=== PATIENT | female | born 1955 | race Caucasian/White ===

== ENCOUNTER → 2017-03-04 | Outpatient (CLI) | payer OTHER | LOC: FIMAGING 09:17 | PROVIDERS: ATTEND Internal Medicine | DX: Z12.31 Encounter for screening mammogram for malignant neoplasm of breast (principal); Z80.3 Family history of malignant neoplasm of breast | CPT/HCPCS: G0202 ==

== ENCOUNTER 2017-06-19 21:03 | Emergency (ER) | payer OTHER ==
[2017-06-19 21:10] VITALS: RESP 16
--- NOTE | 2017-06-19 21:38 | EDPHY ---
H & P Stated Complaint: Fell in bathtub, hit head, headache, -LOC Time Seen by Provider: 06/19/17 21:10 HPI/ROS: HPI CHIEF COMPLAINT: Slip and fall in bed thumb, head injury HISTORY OF PRESENT ILLNESS: This patient is 61-year-old female, she is otherwise healthy without any significant medical history does not take any daily medications except for hypertension medication, not on blood thinners, she slipped and fell in her bathtub she fell backwards with head strike. No LOC. No vomiting does complain of nausea. Complains of a posterior headache as well. Denies chest pain, shortness of breath, syncope. Denies extremity pain. She is noted to have a hematoma to the posterior occiput. She also complains of bilateral neck pain but no midline neck pain. Patient states that she slipped and fell in the wet bathtub. Her feet went out underneath her. Past Medical History: Hypertension Past Surgical History: No recent surgery Social History: Denies drugs alcohol tobacco. Family History: Noncontributory ROS REVIEW OF SYSTEMS: A comprehensive 10 point review of systems is otherwise negative aside from elements mentioned in the history of present illness. Exam Constitutional appears well nontoxic no acute distress, triage nursing summary reviewed, vital signs reviewed, awake/alert. Eyes normal conjunctivae and sclera, EOMI, PERRLA. HENT head/neck: Posterior occiput, shows a scalp hematoma, no laceration, no midline cervical spine pain or step-offs or crepitus, does complain of some mild paravertebral pain bilaterally. moist mucus membranes, no epistaxis, neck supple/ no meningismus, no raccoon eyes. Respiratory clear to auscultation bilaterally, normal breath sounds, no respiratory distress, no wheezing. Cardiovascular rate normal, regular rhythm, no murmur, no edema, distal pulses normal. Gastrointestinal soft, non-tender, no rebound, no guarding, normal bowel sounds, no distension, no pulsatile mass. Genitourinary no CVA tenderness. Musculoskeletal no midline vertebral tenderness, full range of motion, no calf swelling, no tenderness of extremities, no meningismus, good pulses, neurovascularly intact. Skin pink, warm, & dry, no rash, skin atraumatic. Neurologic awake, alert and oriented x 3, AAOx3, moves all 4 extremities equally, motor intact, sensory intact, CN II-XII intact, normal cerebellar, normal vision, normal speech. Psychiatric normal mood/affect. Heme/Lymph/Immune no lymphadenopathy. Differential Diagnosis: Includes but is not limited to in a particular order closed-head injury, concussion, intracranial bleed, skull fracture, epidural, subdural, traumatic subarachnoid, scalp hematoma, cervical spine injury Medical Decision Making: Plan for this patient CT head without contrast CT cervical spine without contrast for trauma, Tylenol 1 g for pain control. Re-evaluation: CT head without contrast CT cervical spine without contrast negative for acute traumatic injury. Source: Patient - Personal History Current Tetanus/Diphtheria Vaccine: Unsure Current Tetanus Diphtheria and Acellular Pertussis (TDAP): Unsure - Medical/Surgical History Hx Asthma: No Hx Chronic Respiratory Disease: No Hx Diabetes: No Hx Cardiac Disease: No Hx Renal Disease: No Hx Cirrhosis: No Hx Alcoholism: No Hx HIV/AIDS: No Hx Splenectomy or Spleen Trauma: No Other PMH: HTN, L total hip, concussion, hysterectomy, ortho sx. - Social History Smoking Status: Never smoked Constitutional: Initial Vital Signs Temperature (C) 36.5 C 06/19/17 21:06 Heart Rate 71 06/19/17 21:06 Respiratory Rate 16 06/19/17 21:06 Blood Pressure 154/87 H 06/19/17 21:06 O2 Sat (%) 95 06/19/17 21:06 O2 Delivery Mode Room Air Allergies/Adverse Reactions: Quinolones Allergy (Verified 06/19/17 21:10) Home Medications: Medication Instructions Recorded Chlorthalidone 06/19/17 Estrogens,Conjugated 06/19/17 Potassium Chloride 06/19/17 Progesterone 06/19/17 Testosterone 06/19/17 Medical Decision Making - Diagnostics Imaging Results: Imaging Impressions Cervical Spine CT 06/19/17 21:41 Impression: There is no acute intracranial abnormality identified on this unenhanced CT evaluation. UNENHANCED CT SCAN OF THE CERVICAL SPINE Technique: A multidetector unenhanced helical CT scan was obtained from the clivus caudally through the upper thoracic spine, with images reformatted at 1.25 and 0.625 mm increments, and are reviewed in soft tissue, bone, and lung windows. Parasagittal and paracoronal reconstructed images are reviewed on the workstation. The DFOV is 16.0 cm. A dose reduction protocol was used. Findings: The cervical vertebral body heights are maintained. There is 1 mm of C4 anterolisthesis above C5, and 3 mm of C5 posterolisthesis of C6 where there are ventral traction osteophytes from C4 to C6 and dorsal traction osteophytes at C5-C6, where there is severe degenerative disk space narrowing and endplate sclerosis. There is no acute fracture, or facet malalignment, although there is facet hypertrophy and asymmetric right-sided uncovertebral degenerative spondylosis at C5-C6 resulting in severe right neural foraminal stenosis at this level. There is also some mild bilateral facet hypertrophy at C6-C7. The interspinous distances are normal. The craniocervical junction is normal. The predental space, and the atlantoaxial lateral mass alignment is normal. The base and the tip of the dens are normal. There is no central canal stenosis or focal disk herniation identified. There is no paravertebral or epidural hematoma identified. The prevertebral soft tissues are normal, as are the lung apices. Impression: 1. There is no acute cervical osseous abnormality. 2. Degenerative features, most pronounced at C5-C6, as above-detailed. If there is further clinical concern regarding the patient's symptoms, correlative MR imaging could be considered, if otherwise not contraindicated. Findings were discussed with Johnathan Thomas MD at 23:12, on 06/19/2017. Head CT 06/19/17 21:41 Impression: There is no acute intracranial abnormality identified on this unenhanced CT evaluation. UNENHANCED CT SCAN OF THE CERVICAL SPINE Technique: A multidetector unenhanced helical CT scan was obtained from the clivus caudally through the upper thoracic spine, with images reformatted at 1.25 and 0.625 mm increments, and are reviewed in soft tissue, bone, and lung windows. Parasagittal and paracoronal reconstructed images are reviewed on the workstation. The DFOV is 16.0 cm. A dose reduction protocol was used. Findings: The cervical vertebral body heights are maintained. There is 1 mm of C4 anterolisthesis above C5, and 3 mm of C5 posterolisthesis of C6 where there are ventral traction osteophytes from C4 to C6 and dorsal traction osteophytes at C5-C6, where there is severe degenerative disk space narrowing and endplate sclerosis. There is no acute fracture, or facet malalignment, although there is facet hypertrophy and asymmetric right-sided uncovertebral degenerative spondylosis at C5-C6 resulting in severe right neural foraminal stenosis at this level. There is also some mild bilateral facet hypertrophy at C6-C7. The interspinous distances are normal. The craniocervical junction is normal. The predental space, and the atlantoaxial lateral mass alignment is normal. The base and the tip of the dens are normal. There is no central canal stenosis or focal disk herniation identified. There is no paravertebral or epidural hematoma identified. The prevertebral soft tissues are normal, as are the lung apices. Impression: 1. There is no acute cervical osseous abnormality. 2. Degenerative features, most pronounced at C5-C6, as above-detailed. If there is further clinical concern regarding the patient's symptoms, correlative MR imaging could be considered, if otherwise not contraindicated. Findings were discussed with Johnathan Thomas MD at 23:12, on 06/19/2017. - Data Points Medications Given: Discontinued Medications Acetaminophen (Tylenol) 1,000 mg PO EDNOW ONE Stop: 06/19/17 21:42 Last Admin: 06/19/17 22:12 Dose: Not Given Acetaminophen (Tylenol) 1,000 mg PO EDNOW ONE Stop: 06/19/17 22:45 Last Admin: 06/19/17 22:45 Dose: 1,000 mg Departure - Departure Disposition: Home, Routine, Self-Care Clinical Impression: Head injury Qualifiers: Encounter type: initial encounter Qualified Code(s): S09.90XA - Unspecified injury of head, initial encounter Concussion Qualifiers: Encounter type: initial encounter Loss of consciousness presence/duration: without LOC Qualified Code(s): S06.0X0A - Concussion without loss of consciousness, initial encounter Condition: Good Instructions: Concussion (ED) Additional Instructions: 1. Return emergency room if you have worsening headache vomiting. 2. Follow up with your primary care doctor. 3. Follow up with concussion specialist as needed. Referrals: Adri Stiles MD [Primary Care Provider] - As per Instructions Lorrie Scanlon MD [Medical Doctor] - As per Instructions
[2017-06-19] MEDS ORDERED: ACETAMINOPHEN 500 MG TAB PO ONE ×2 (21:41→22:44)
[2017-06-19 23:35] VITALS: BP 118/66; PULSE 64; TEMP 97.9; O2SAT 96
== END 2017-06-19 23:34 | disposition home or self-care (01) ==
DX: S06.0X0A Concussion without loss of consciousness, initial encounter (principal); I10 Essential (primary) hypertension; W18.2XXA Fall in (into) shower or empty bathtub, initial encounter

== ENCOUNTER → 2018-04-07 | Outpatient (CLI) | payer OTHER | LOC: FIMAGING 14:05 | PROVIDERS: ATTEND Internal Medicine | DX: Z12.31 Encounter for screening mammogram for malignant neoplasm of breast (principal); Z80.3 Family history of malignant neoplasm of breast ==